=== PATIENT | male | born 1985 | race Caucasian/White ===

== ENCOUNTER 2021-05-23 20:01 | Emergency (ER) | payer BC ==
[~2021-05-23] VITALS: Ht 170.2 cm; Wt 145.1 kg
[2021-05-23 20:47] VITALS: BP 116/69
--- NOTE | 2021-05-23 20:55 | NUR ---
PATIENT TO [facility] AMBULATORY
--- NOTE | 2021-05-23 20:58 | NUR ---
PATIENT AMBULATED TO THE BATHROOM FOR URINE COLLECTION
[2021-05-23 21:37] LABS: BASOPHILS # (AUTO) 0.1 K/uL (0.00-0.22); BASOPHILS % (AUTO) 0.8 % (0.0-2.0); EOSINOPHILS # (AUTO) 0.2 K/uL (0-0.4); EOSINOPHILS % (AUTO) 2.5 % (0.0-4.0); HEMATOCRIT 46.7 % (36-52); HEMOGLOBIN 16.3 g/dL (12.0-18.0); LYMPHOCYTES # (AUTO) 2.4 K/uL (2.0-11.5); LYMPHOCYTES % (AUTO) 27.7 % (20.5-51.1); MEAN CORPUSCULAR HEMOGLOBIN 30 pg (27-31); MEAN CORPUSCULAR HGB CONC 35 g/dL (33-37); MEAN CORPUSCULAR VOLUME 86.4 fL (80-94); MONOCYTES # (AUTO) 0.8 K/uL (0.8-1.0); MONOCYTES % (AUTO) 9.4 % (1.7-9.3); NEUTROPHILS # (AUTO) 5.2 K/uL (1.8-7.7); NEUTROPHILS % (AUTO) 59.6 % (42.2-75.2); PLATELET COUNT (AUTO) 328 K/uL (140-450); RED BLOOD CELL COUNT(AUTO) 5.41 MIL/uL (4.20-6.10); RED CELL DISTRIBUTION WIDTH 12.7 % (11.6-13.7); WHITE BLOOD COUNT (AUTO) 8.8 K/uL (4.8-10.8)
[2021-05-23 21:58] LABS: ALBUMIN 3.2 g/dL (3.4-5.0); ANION GAP 15.5 (8-16); CREATININE 1.2 mg/dL (0.6-1.3); POTASSIUM 3.5 mmol/L (3.5-5.1); TOTAL BILIRUBIN 0.6 mg/dL (0.0-1.0)
--- NOTE | 2021-05-23 22:38 | NUR ---
PATIENT TO BED 10 AMBULATORY
[2021-05-23] MEDS ORDERED: diazePAM 5 MG TAB PO ONE (23:00)
[2021-05-23] MEDS ORDERED: KETOROLAC 30 MG/ML VIAL IM ONE (23:00)
--- NOTE | 2021-05-23 23:02 | NUR ---
REPORTS HEADACHE X3 DAYS WITH NO RELIEF FROM PO OTC MEDS. PATIENT HAS NO FURTHER COMPLAINTS AT THIS TIME.
[2021-05-23 23:19] LABS: APPEARANCE,URINE CLEAR (CLEAR); BILIRUBIN,URINE NEGATIVE (NEGATIVE); BLOOD, URINE TRACE-I (NEGATIVE); COLOR,URINE YELLOW (YELLOW); LEUKOCYTE ESTERASE ,URINE NEGATIVE (NEGATIVE); NITRITE, URINE NEGATIVE (NEGATIVE); UGLUCOSE NEGATIVE (NEGATIVE)
--- NOTE | 2021-05-23 23:24 | NUR ---
TAKEN TO CT AT THIS TIME.
[2021-05-24 00:25] LABS: RBC,URINE 0-5 /HPF (0-5); WBC,URINE 0-5 /HPF (0-5)
[2021-05-24] MEDS ORDERED: NAPR-54 PO (01:27)
--- NOTE | 2021-05-24 01:32 | NUR ---
CLEARED FOR DISCHARGE AT THIS TIME. ADVISED TO FOLLOW UP WITH PCP AND RETURN IF CONDITION WORSENS. NO OTHER COMPLAINTS OR CONCERNS FOLLOWING DISCHARGE TEACHING.
[2021-05-24 01:33] VITALS: BP 127/88
== END 2021-05-24 01:32 | disposition home or self-care (01) ==
LOC: MED 20:01
DX: R51.9 Headache, unspecified (principal); H53.8 Other visual disturbances; H53.149 Visual discomfort, unspecified; F12.90 Cannabis use, unspecified, uncomplicated; Z79.899 Other long term (current) drug therapy; Z98.890 Other specified postprocedural states
CPT/HCPCS: 36415; 70450; 80053; 81001; 85025; 93005; 96372; 99285; J1885